=== PATIENT | female | born 1955 | race Two or more races ===

== ENCOUNTER 2024-08-10 08:39 | Outpatient (AMB) | payer OTHER, MEDICAID, SELFPAY ==
[2024-08-10 09:05] VITALS: BP 143/85; PULSE 72; RESP 18; TEMP 36; O2SAT 95; BMI 33.2
--- NOTE | 2024-08-10 09:05 | ORTHONT_ITS ---
Vital signs 08/10/24 09:05 Height 1.52 m Height Method Stated Weight 76.771 kg Weight Measurement Method Standing Scale BMI 33.2 BP 143/85 H Blood Pressure Source Automatic Cuff Blood Pressure Location Right Upper Arm Position Sitting Respiration 18 Pulse 72 Pulse Source Monitor Temp 96.8 F Temp Source Temporal Artery Scan Pulse Oximetry (%) 95 Oxygen Delivery Method Room Air Med/Allergies Allergies & Medications Allergies No Known Allergies Allergy (Verified 07/23/24 11:09) Subjective Visit Visit for: follow up visit, hip, knee and other (specify) (LAB RESULTS) Immunization / Flu Flu Vaccine in the Last 12 Months: Yes Flu Vaccine Exclusion Criteria: Already Received History of Present Illness Chief complaint: LAB RESULTS/KNEE FOLLOW UP Date of injury / onset of symptoms: YEARS Date of 1st surgery (if applicable): 13-15 YEARS LEFT KNEE SX Normal is a pleasant 68-year-old female with bilateral knee pain and bilateral k nee arthritis. She has significant knee more knee pain on the left than the right. She had a left total knee replacement 10 years ago. The pain is affecting her quality life and happiness. Her right knee pain and left hip trochanteric bursitis has improved with the injection. Personal History Occupation: RETIRED Hobbies: WALKING Red flag PMH: Blood thinners Pain Pain level (0-10): 6 Pain duration: ON AND OFF Pain location: inside (medial) Pain quality: sharp and aching Pain timing: increases with activity Associated signs & symptoms: none Ambulatory data Ambulatory device: none Treatments Improvement with previous injections: No Improvement with PT: No Improvement with NSAIDS: no Review of Systems Review of Systems: All systems negative unless otherwise noted in HPI. Exam Exam Patient is in no acute distress and is cooperative with the examination today. Patient has a normal mood and affect. Breathing is nonlabored. In no respiratory distress. Bilateral extremities were evaluated and demonstrates sensation intact to light touch. Palpable pedal pulses are present. No significant edema is present. Left knee incisions clean dry intact. Range of motion is 10 to 90 degrees. She has medial and lateral laxity. There is >5 mm of medial and lateral laxity. Right knee is tender to palpation medially. Range of motion 0 to 110 degrees X-rays demonstrate moderate arthritis of the right Knee with moderate joint space narrowing medially. The patient also has a left total knee replacement in good alignment position. This looks like a Bushra knee. It is cemented. Assessment and Plan Problem List (1) Painful total knee replacement, left: Status: Acute Plan: Patient is a pleasant 61 of-year-old female with painful bilateral knees. She has a left total knee replacement 15 years ago And there is standard 10 degrees of extensor lag on the left. She also has symptoms of instability on the left. I discussed with her that we have 2 options. We could redo the whole knee we could try upsizing the liner. She would like to try upsizing the liner and the less invasive surgery. She does live alone. We discussed a revision for instability including upsizing the liner. We will try to Achieved stability with just upsizing the liner but we discussed that we may have to pull both components and do a Complete revision she does not achieve stability. We discussed the risk of surgery including infection, persistent instability, persistent pain. We did get an ESR and CRP and it was normal. She would like to proceed with surgery (2) Arthritis of knee, right: Status: Acute Advanced Care Planning Discussion Advance care planning discussed with:: patient Office Procedures GNS Level of Care Nursing/Assessment Patient Status: Established Patient Nursing Assessment/Reassesment: Medication Reconciliation, Update PMH in EMR and Vital Signs Coordination of Care: Complex Care and Chronic Disease 1-5, Education Complex Pt/Fam, Consent,records obtained, informed consent, 1 Ins Authorization, Results/Orders obtained and Staff clarify orders Special Needs: Language special needs Established Patient Charge Established Patient Point Assignment: 110 Established Patient Point Charge: EP Level 3 (80-115) Past Medical History Past Medical History Have you ever been diagnosed with any of the following: Neurological Problems Seizures: No Cardiology Problems Hypercholesterolemia: Yes (TAKES MED) Congestive Heart Failure: No Hypertension: Yes (TAKES MED) Hypotension: Yes Varicose Veins: Yes (RAQUEL LEFT LEG FOR THIS PROC) Respiratory Problems Chronic Obstructive Pulmonary Disease (COPD): No Pneumonia: Yes Sleep Apnea: No Smoking: No Smoking Cessation Counseling: No Smoking Exposure: No Tobacco Use: No Stomache/Intestinal Problems Cirrhosis: Yes (OF LIVER) Gall Bladder Disease: Yes (LAP) Gastroesophageal Reflux Disease: Yes Genital/Urinary Problems Renal Disease: No Kidney Stones: No Reproductive Problems Breast Cancer: Yes (RIGHT) Previous Pregnancies: Yes (X8) Musculoskeletal Problems Arthritis: Yes Endocrine Problems Diabetes Mellitus Type 1: No Diabetes Mellitus Type 2: Yes Psychologic Problems Depression: Yes Anxiety: Yes Other Problems Hospitalization: No Shingles: No Falls: No Blood Transfusions: No Blood Transfusion Reaction: No Anesthesia Reactions: Yes (nausea/vomiting when awaking from anesthesia) Chemotherapy: No Radiation Therapy: No MRSA: No Chicken Pox: Yes Measles: Yes Mumps: Yes Cancer: Yes Surgical History Total Knee Replacement: Yes Hysterectomy: Yes Thyroidectomy: Yes
== END 2024-08-10 09:22 | disposition home or self-care (01) ==
LOC: HODSRG 08:39
PROVIDERS: PCP Nurse Practitioner Family; Referring Provider Nurse Practitioner Family; Supervising Provider Orthopaedic Surgery Adult Reconstructive Orthopaedic Surgery; Visit Provider Orthopaedic Surgery Adult Reconstructive Orthopaedic Surgery
DX: M25.562 Pain in left knee (principal); M25.561 Pain in right knee; M17.11 Unilateral primary osteoarthritis, right knee; E78.00 Pure hypercholesterolemia, unspecified; I10 Essential (primary) hypertension; Z96.652 Presence of left artificial knee joint
CPT/HCPCS: 99213; G0463

== ENCOUNTER 2024-08-18 12:41 | Outpatient (RCR) | payer OTHER, MEDICAID, SELFPAY ==
--- NOTE | 2024-08-18 13:35 | PTNOTE_ITS ---
PT OP Initial Eval Patient Information Outpatient Physical Therapy Treatment Date: 08/18/24 Visit Reasons: TKA Medical Diagnosis: [id number] Treatment Dx #1: L knee pain Treatment Dx #2: Dec L knee ROM Start of Care: 08/18/24 Date of Onset: 6 months ago Smoking Status Smoking Status: Never smoker Initial Assessment Subjective: Pt is 68 yr old tuvaluan speaking female who reports L knee pain that can be intense and weakness that can cause the knee to give out. Pt says she has fallen because of this. This knee has been replaced many years ago PMH: Osteoporosis, DM Imaging: Xray L knee Moderate narrowing medial joint space right knee, Moderate osteoarthritis patellofemoral joint right knee Pt goal: less pain and improved L knee strength Objective: L knee AROM: Extension: full in supine. Flexion: 74 deg in supine SLR: 20 deg in supine TTP: moderate of patella borders Strength: Quads: 3-/5 Difficulty in sitting to extend knee HS: 3+/5 Patella compression: positive Assessment: Pt presents with marked L knee extensor weakness and pain with difficulty doing straight leg raise consistent with patellofemoral OA. Pt requires skilled therapy to meet goals and has fair rehab potential. Short Term and Snf Goals 1. Independent with HEP 2. Improved knee ROM to full extension to 105 deg flexion 3. Improved quad and hamstring strength to 4-/5 4. Improved ambulatory tolerance to community distances with symmetrical gait pattern without knee buckling Treatment Plan ? 1. Manual therapy ? 2. Therex ? 3. Modalities as indicated, moist heat, ice, estim Frequency and Duration: 1-2x a week for 12 visits Certification Dates: 08/18/24 to 11/16/24 Procedure Charges OP PT Eval Mod Complex 30 minutes: Yes
== END 2024-08-28 23:59 | disposition home or self-care (01) ==
LOC: CPTX 12:41
PROVIDERS: PCP Orthopaedic Surgery Adult Reconstructive Orthopaedic Surgery; Referring Provider Orthopaedic Surgery Adult Reconstructive Orthopaedic Surgery; Visit Provider Orthopaedic Surgery Adult Reconstructive Orthopaedic Surgery
DX: M25.562 Pain in left knee (principal); R53.1 Weakness; Z96.652 Presence of left artificial knee joint
CPT/HCPCS: 97162

== ENCOUNTER 2024-09-14 09:30 | Outpatient (RCR) | payer OTHER, MEDICAID, SELFPAY ==
--- NOTE | 2024-08-30 10:35 | PT.ODAYNRPT ---
PT Outpatient Daily Note OP Daily Note Outpatient Physical Therapy Treatment Date: 08/30/24 Visit Reasons: left knee pain Subjective: Same as time of eval Objective: See f/S for therex SABRINA x7' Assessment: L quad weakness likely related to patellofemoral OA and compression sensitivity Plan: Continue per POC Length of Time (minutes) of Treatment: 30 Minutes Procedure Charges Therapeutic Exercise 30 minutes: Yes
--- NOTE | 2024-09-02 09:29 | PT.ODAYNRPT ---
PT Outpatient Daily Note OP Daily Note Outpatient Physical Therapy Treatment Date: 09/02/24 Visit Reasons: left knee pain Subjective: The L knee feels a little stronger Objective: See f/S for evelio BENNETT x7' Assessment: L quad weakness likely related to patellofemoral OA and compression sensitivity. She was able to do a complete revolution on the bike in reverse today Plan: Continue per POC Length of Time (minutes) of Treatment: 30 Minutes Procedure Charges Therapeutic Exercise 30 minutes: Yes
--- NOTE | 2024-09-07 10:15 | PT.ODAYNRPT ---
PT Outpatient Daily Note OP Daily Note Outpatient Physical Therapy Treatment Date: 09/07/24 Visit Reasons: left knee pain Subjective: Pt c/o L knee pain and stiffness. Objective: Please see flow sheet for ther ex list. Assessment: Pt c/o knee pain with interventions but determined to try and complete exercises. Plan: Continue with POc. Length of Time (minutes) of Treatment: 30 Minutes Procedure Charges Therapeutic Exercise 30 minutes: Yes
--- NOTE | 2024-09-09 09:53 | PT.ODAYNRPT ---
PT Outpatient Daily Note OP Daily Note Outpatient Physical Therapy Treatment Date: 09/09/24 Visit Reasons: left knee pain Subjective: Pt reports L knee is feeling better but still stiff. Objective: Please see flow sheet for ther ex list. Assessment: Progression of interventions tolerated well. Plan: Continue with POC. Length of Time (minutes) of Treatment: 30 Minutes Procedure Charges Therapeutic Exercise 30 minutes: Yes
--- NOTE | 2024-09-14 09:47 | PT.ODAYNRPT ---
PT Outpatient Daily Note OP Daily Note Outpatient Physical Therapy Treatment Date: 09/14/24 Visit Reasons: left knee pain Subjective: Pt reports knee is stiff but pain has decreased. Objective: Please see flow sheet for ther ex list. Assessment: Pt demonstrates improved activity tolerance indicated by less seated rest breaks during exercise. Plan: Continue with POC. Length of Time (minutes) of Treatment: 30 Minutes Procedure Charges Therapeutic Exercise 30 minutes: Yes
== END 2024-09-28 23:59 | disposition home or self-care (01) ==
LOC: CPTX 09:30
PROVIDERS: PCP Orthopaedic Surgery Adult Reconstructive Orthopaedic Surgery; Referring Provider Orthopaedic Surgery Adult Reconstructive Orthopaedic Surgery; Visit Provider Orthopaedic Surgery Adult Reconstructive Orthopaedic Surgery
DX: M25.562 Pain in left knee (principal); R53.1 Weakness; Z96.652 Presence of left artificial knee joint
CPT/HCPCS: 97110

== ENCOUNTER → 2024-12-09 | Outpatient (CLI) | payer OTHER, MEDICAID, SELFPAY ==
--- NOTE | 2024-12-09 12:38 | XR_ITS ---
Examination: Chest PA and lateral 2 views Technique: Upright PA lateral chest 2 views Exam date and time: 2024, 1301 hrs. Indications: Diagnosis pulmonary embolism Findings: Normal heart size. No pneumonia or pulmonary infarction. Moderate osteopenia. Impression: No pneumonia or pulmonary infarction
== END | disposition home or self-care (01) ==
PROVIDERS: PCP Nurse Practitioner Family; Referring Provider Nurse Practitioner Family; Visit Provider Nurse Practitioner Family
DX: I26.99 Other pulmonary embolism without acute cor pulmonale (principal)
CPT/HCPCS: 71046

== ENCOUNTER → 2025-01-06 | Outpatient (CLI) | payer MEDICARE, MEDICAID, SELFPAY ==
--- NOTE | 2025-01-06 11:30 | XR_ITS ---
Examination: Retroperitoneal ultrasound, complete Technique: Multiple high resolution grayscale images of the retroperitoneum obtained, including kidneys and bladder. Exam date and time:January 06, 2025 1131 hrs. Indications: Proteinuria left are examination 2 weeks ago Findings: Right kidney 10.9 cm cortex 1.4 cm Left kidney 11.3 cm cortex 1.8 cm Mild bilateral renal parenchymal scar formation Mild left hydronephrosis No bladder mass or bladder calculi Bladder prevoid volume 160 cc postvoid volume 0 cc Impression: Bilateral renal cortical thinning Mild bilateral renal parenchymal scar formation Mild left hydronephrosis, consider CT stone study follow-up to exclude left ureteral calculus
== END | disposition home or self-care (01) ==
PROVIDERS: PCP Nurse Practitioner Family; Referring Provider Nurse Practitioner Family; Visit Provider Nurse Practitioner Family
DX: N28.89 Other specified disorders of kidney and ureter (principal)
CPT/HCPCS: 76770

== ENCOUNTER 2025-01-10 12:25 | Outpatient (RCR) | payer MEDICARE, MEDICAID, SELFPAY ==
--- NOTE | 2025-01-10 18:17 | PT.ODS1RPT ---
PT OP Progress/Discharge Note Date of Service: 01/10/25 Progress Note/DC Note Progress Note/Discharge Note: DC Note Patient Information Visit Reasons: Left TKA Service Continue Service or Discharge: Discharge Discharge Date: 01/10/25 Status Objective: No Rx, no charges Assessment: Pt arrived for therapy and presented new insurance cards so she will need to D/C and be referred back to therapy if provider wants her to continue. She wasn't making progress with goals at the time of last therapy session and today unable to extend the knee in sitting. Flexion is still limited and she is unable to make full revolution on the bike. Plan: D/C
== END 2025-01-26 23:59 | disposition home or self-care (01) ==
LOC: CPTX 12:25
PROVIDERS: PCP Orthopaedic Surgery Adult Reconstructive Orthopaedic Surgery; Referring Provider Orthopaedic Surgery Adult Reconstructive Orthopaedic Surgery; Visit Provider Orthopaedic Surgery Adult Reconstructive Orthopaedic Surgery
DX: Z53.8 Procedure and treatment not carried out for other reasons (principal)

== ENCOUNTER 2025-01-11 11:12 | Outpatient (AMB) | payer MEDICARE, MEDICAID, SELFPAY ==
--- NOTE | 2025-01-11 11:16 | ORTHONT_ITS ---
Vital signs 01/11/25 11:28 Height 1.52 m Height Method Stated Weight 78.557 kg Weight Measurement Method Standing Scale BMI 34.0 BP 126/78 Blood Pressure Source Automatic Cuff Blood Pressure Location Left Upper Arm Position Sitting Respiration 17 Pulse 64 Pulse Source Monitor Temp 97.3 F Temp Source Temporal Artery Scan Pulse Oximetry (%) 98 Oxygen Delivery Method Room Air Med/Allergies Allergies & Medications Allergies No Known Allergies Allergy (Verified 01/11/25 11:29) Medication Reconciliation apixaban 2.5 mg tablet (Eliquis) 2.5 mg PO BID 07/08/24 [History Confirmed 01/11/25] atorvastatin 40 mg tablet 40 mg PO QDAY 07/08/24 [History Confirmed 01/11/25] metformin 500 mg tablet 500 mg PO BID 07/08/24 [History Confirmed 01/11/25] albuterol sulfate 90 mcg/actuation aerosol inhaler 2 puff inhalation QID 07/23/24 [History Confirmed 01/11/25] alendronate 70 mg tablet 70 mg PO QWEEK 07/23/24 [History Confirmed 01/11/25] famotidine 20 mg tablet 20 mg PO QDAY 07/23/24 [History Confirmed 01/11/25] hydrocodone 7.5 mg-acetaminophen 325 mg tablet 1 tab PO Q6H PRN 07/23/24 [History Confirmed 01/11/25] pravastatin 40 mg tablet 40 mg PO QDAY 07/23/24 [History Confirmed 01/11/25] empagliflozin 10 mg tablet (Jardiance) 10 mg PO QDAY 01/11/25 [History Confirmed 01/11/25] Exam Exam Patient is in no acute distress and is cooperative with the examination today. Patient has a normal mood and affect. Breathing is nonlabored. In no respiratory distress. Bilateral extremities were evaluated and demonstrates sensation intact to light touch. Palpable pedal pulses are present. No significant edema is present. Left knee incisions clean dry intact. Range of motion is 10 to 90 degrees. She has medial and lateral laxity. There is >5 mm of medial and lateral laxity. Right knee is tender to palpation medially. Range of motion 0 to 110 degrees X-rays demonstrate moderate arthritis of the right Knee with moderate joint space narrowing medially. The patient also has a left total knee replacement in good alignment position. This looks like a Bushra knee. It is cemented. Assessment and Plan Problem List (1) Painful total knee replacement, left: Status: Acute Plan: Patient is a pleasant 61 of-year-old female with painful bilateral knees. She has a left total knee replacement 15 years ago and She also has symptoms of instability on the left. I discussed with her that we have 2 options. We could redo the whole knee we could try upsizing the liner. She would like to try upsizing the liner and the less invasive surgery. She does live alone. We discussed a revision for instability including upsizing the liner. We will try to Achieved stability with just upsizing the liner but we discussed that we may have to pull both components and do a Complete revision she does not achieve stability. We discussed the risk of surgery including infection, persistent instability, persistent pain. We did get an ESR and CRP and it was normal. She would like to hold off on revision of her left knee for now She has done well with physical therapy would like new physical therapy for instability as the knee pain is improved on the left. We discussed injections of the left hip trochanteric bursa and right knee as well Recommend hip bursa cortisone injection as patient would like to proceed with conservative treatment at this time. The risks and benefits of the procedure were reviewed with the patient and patient gave verbal consent to continue with the procedure. Procedure: performed by Dr. Thibodeaux Using sterile technique the left hip bursa was thoroughly prepped with alcohol prep, and approximately 1 cc of Kenalog 40 mg/mL and 4 cc of 1% Lidocaine was injected without resistance. The patient tolerated the procedure well. Recommend knee cortisone injection as patient would like to proceed with conservative treatment at this time. The risks and benefits of the procedure were reviewed with the patient and patient gave verbal consent to continue with the procedure. Procedure: performed by Dr. Thibodeaux Using sterile technique the Right knee was thoroughly prepped with alcohol, and approximately 1 cc of Kenalog 40 mg/mL and 4 cc of 1% lidocaine was injected without resistance into the medial tibial femoral joint space. The patient tolerated the procedure. (2) Arthritis of knee, right: Status: Acute Advanced Care Planning Discussion Advance care planning discussed with:: patient Office Procedures GNS Level of Care Nursing/Assessment Patient Status: Established Patient Nursing Assessment/Reassesment: Medication Reconciliation, Update PMH in EMR and Vital Signs Coordination of Care: Complex Care and Chronic Disease 1-5, Consent,records obtained, informed consent, Education Simp Pt/Fam, 1 Ins Authorization, Results/Orders obtained and Staff clarify orders Special Needs: Language special needs (STATELESS ) Established Patient Charge Established Patient Point Assignment: 105 Established Patient Point Charge: EP Level 3 (80-115) Surgical Proc/IM SQ injection Major Surgical Procedure: Yes (RIGHT KNEE & LEFT HIP ) Medication Given Medication Given Medication Given: Yes Documented Dose Given: 8 Route: Infiitration Medication Given Medication Given Medication Given: Yes Documented Dose Given: 2 Route: Infiitration Office Meds Xylocaine 10 mg/mL (1 %) injection solution Performing Provider: Cam Thibodeaux MD Performing Location: [facility] Administered by: Cam Thibodeaux MD on 01/11/25 11:33 Dose Route Admin Location Dispensed Lot Number Expiration Date [facility] [employer] 40 mL Infiltration 40 mL [id number] FRESEN [employer]US KABI triamcinolone acetonide 40 mg/mL suspension for injection Performing Provider: Cam Thibodeaux MD Performing Location: [facility] Administered by: Cam Thibodeaux MD on 01/11/25 11:33 Dose Route Admin Location Dispensed Lot Number Expiration Date [facility] [employer] 80 mg intra-articular 2 mL [id number] TEV A PARENTERAL MA Intake Visit Data Collection New Patient or Established: Established Patient (seen at [facility] within 3 years) Reason for Visit:: LEFT HIP PAIN Seen by Clinical Staff ONLY (RN/MA): No Overnight Stocker Required: Yes PCP or OBGYN visit in last 3 months: Yes Hx Now: No Do You Feel Safe at Home: Yes Authorities Contacted: N/A Questionairres Past Medical History Past Medical History Have you ever been diagnosed with any of the following: Neurological Problems Seizures: No Cardiology Problems Hypercholesterolemia: Yes (TAKES MED) Congestive Heart Failure: No Hypertension: Yes (TAKES MED) Hypotension: Yes Varicose Veins: Yes (RAQUEL LEFT LEG FOR THIS PROC) Respiratory Problems Chronic Obstructive Pulmonary Disease (COPD): No Pneumonia: Yes Sleep Apnea: No Smoking: No Smoking Cessation Counseling: No Smoking Exposure: No Tobacco Use: No Stomache/Intestinal Problems Cirrhosis: Yes (OF LIVER) Gall Bladder Disease: Yes (LAP) Gastroesophageal Reflux Disease: Yes Genital/Urinary Problems Renal Disease: No Kidney Stones: No Reproductive Problems Breast Cancer: Yes (RIGHT) Previous Pregnancies: Yes (X8) Musculoskeletal Problems Arthritis: Yes Endocrine Problems Diabetes Mellitus Type 1: No Diabetes Mellitus Type 2: Yes Psychologic Problems Depression: Yes Anxiety: Yes Other Problems Hospitalization: No Shingles: No Falls: No Blood Transfusions: No Blood Transfusion Reaction: No Anesthesia Reactions: Yes (nausea/vomiting when awaking from anesthesia) Chemotherapy: No Radiation Therapy: No MRSA: No Chicken Pox: Yes Measles: Yes Mumps: Yes Cancer: Yes Surgical History Total Knee Replacement: Yes Hysterectomy: Yes Thyroidectomy: Yes Subjective Visit Visit for: follow up visit, hip (LEFT HIP) and knee (RIGHT KNEE ) Immunization / Flu Flu Vaccine in the Last 12 Months: Yes Flu Vaccine Exclusion Criteria: Already Received History of Present Illness Chief complaint: Left hip trochanteric bursitis and right knee pain Patient is a 69-year-old female with left hip trochanteric bursitis as well as right knee arthritis. She also has instability of the left knee and we discussed revision previously. She did very well with an injection of her left hip trochanteric bursa as well as her left knee arthritis. She would like repeat injections today Personal History Red flag PMH: none Pain Pain level (0-10): 6 Pain duration: 4 DAYS Pain location: groin and anterior Pain quality: sharp and aching Pain timing: night and increases with activity Associated signs & symptoms: stiffness Ambulatory data Ambulatory device: none Walking distance (minutes): 5 Treatments Number of previous injections: 2 Improvement with previous injections: Yes Number of Physical Therapy sessions: 0 Improvement with NSAIDS: n/a Review of Systems Review of Systems: All systems negative unless otherwise noted in HPI.
[2025-01-11 11:28] VITALS: BP 126/78; PULSE 64; RESP 17; TEMP 36.3; O2SAT 98; BMI 34.0
== END 2025-01-11 11:38 | disposition home or self-care (01) ==
LOC: HODSRG 11:12
PROVIDERS: PCP Nurse Practitioner Family; Referring Provider Nurse Practitioner Family; Supervising Provider Orthopaedic Surgery Adult Reconstructive Orthopaedic Surgery; Visit Provider Orthopaedic Surgery Adult Reconstructive Orthopaedic Surgery
DX: T84.84XD Pain due to internal orthopedic prosthetic devices, implants and grafts, subsequent encounter (principal); Y84.9 Medical procedure, unspecified as the cause of abnormal reaction of the patient, or of later complication, without mention of misadventure at the time of the procedure; M70.62 Trochanteric bursitis, left hip; M17.0 Bilateral primary osteoarthritis of knee; I10 Essential (primary) hypertension; E11.9 Type 2 diabetes mellitus without complications; E78.00 Pure hypercholesterolemia, unspecified; K21.9 Gastro-esophageal reflux disease without esophagitis
CPT/HCPCS: 20610; 99212; 99213; J3301; J3490; G0463

== ENCOUNTER 2025-02-24 09:06 | Outpatient (AMB) | payer MEDICARE, MEDICAID, SELFPAY ==
[2025-02-24 09:22] VITALS: BP 115/68; PULSE 80; RESP 16; TEMP 36.7; O2SAT 96; BMI 32.8
--- NOTE | 2025-02-24 09:22 | PD.ORTHCLVIS ---
Vital signs 02/24/25 09:22 Height 1.52 m Height Method Stated Weight 76.005 kg Weight Measurement Method Standing Scale BMI 32.8 BP 115/68 Blood Pressure Source Automatic Cuff Blood Pressure Location Right Upper Arm Position Sitting Respiration 16 Pulse 80 Pulse Source Monitor Temp 98.1 F Temp Source Temporal Artery Scan Pulse Oximetry (%) 96 Oxygen Delivery Method Room Air BiPAP Med/Allergies Allergies & Medications Allergies No Known Allergies Allergy (Verified 02/24/25 09:23) Medication Reconciliation apixaban 2.5 mg tablet (Eliquis) 2.5 mg PO BID 07/08/24 [History Confirmed 02/24/25] atorvastatin 40 mg tablet 40 mg PO QDAY 07/08/24 [History Confirmed 02/24/25] metformin 500 mg tablet 500 mg PO BID 07/08/24 [History Confirmed 02/24/25] albuterol sulfate 90 mcg/actuation aerosol inhaler 2 puff inhalation QID 07/23/24 [History Confirmed 02/24/25] alendronate 70 mg tablet 70 mg PO QWEEK 07/23/24 [History Confirmed 02/24/25] famotidine 20 mg tablet 20 mg PO QDAY 07/23/24 [History Confirmed 02/24/25] hydrocodone 7.5 mg-acetaminophen 325 mg tablet 1 tab PO Q6H PRN 07/23/24 [History Confirmed 02/24/25] pravastatin 40 mg tablet 40 mg PO QDAY 07/23/24 [History Confirmed 02/24/25] empagliflozin 10 mg tablet (Jardiance) 10 mg PO QDAY 01/11/25 [History Confirmed 02/24/25] Exam Exam Patient is in no acute distress and is cooperative with the examination today. Patient has a normal mood and affect. Breathing is nonlabored. In no respiratory distress. Bilateral extremities were evaluated and demonstrates sensation intact to light touch. Palpable pedal pulses are present. No significant edema is present. Left knee incisions clean dry intact. Range of motion is 10 to 90 degrees. She has medial and lateral laxity. There is >5 mm of medial and lateral laxity. Right knee is tender to palpation medially. Range of motion 0 to 110 degrees X-rays demonstrate moderate arthritis of the right Knee with moderate joint space narrowing medially. The patient also has a left total knee replacement in good alignment position. This looks like a Bushra knee. It is cemented. Assessment and Plan Problem List (1) Painful total knee replacement, left: Status: Acute Plan: Patient is a pleasant 61 of-year-old female with painful bilateral knees. She has a left total knee replacement 15 years ago and She also has symptoms of instability on the left. I discussed with her that we have 2 options. We could redo the whole knee we could try upsizing the liner. She would like to try upsizing the liner and the less invasive surgery. She does live alone. We discussed a revision for instability including upsizing the liner. We will try to Achieved stability with just upsizing the liner but we discussed that we may have to pull both components and do a Complete revision she does not achieve stability. We discussed the risk of surgery including infection, persistent instability, persistent pain. We did get an ESR and CRP and it was normal. She would like to hold off on revision of her left knee for now As she reports she is doing well with physical therapy (2) Arthritis of knee, right: Status: Acute Advanced Care Planning Discussion Advance care planning discussed with:: patient Office Procedures GNS Level of Care Nursing/Assessment Patient Status: Established Patient Nursing Assessment/Reassesment: Medication Reconciliation, Update PMH in EMR and Vital Signs Coordination of Care: Complex Care and Chronic Disease 1-5, Education Complex Pt/Fam, Consent,records obtained, informed consent, Results/Orders obtained and Staff clarify orders Special Needs: Language special needs (LITHUANIAN ) Established Patient Charge Established Patient Point Assignment: 95 Established Patient Point Charge: EP Level 3 (80-115) MA Intake Visit Data Collection New Patient or Established: Established Patient (seen at [facility] within 3 years) Reason for Visit:: FU LT KNEE PAIN Seen by Clinical Staff ONLY (RN/MA): No Independent Trader Required: Yes PCP or OBGYN visit in last 3 months: Yes Hx Now: No Do You Feel Safe at Home: Yes Authorities Contacted: N/A Questionairres Past Medical History Past Medical History Have you ever been diagnosed with any of the following: Neurological Problems Seizures: No Cardiology Problems Hypercholesterolemia: Yes (TAKES MED) Congestive Heart Failure: No Hypertension: Yes (TAKES MED) Hypotension: Yes Varicose Veins: Yes (RAQUEL LEFT LEG FOR THIS PROC) Respiratory Problems Chronic Obstructive Pulmonary Disease (COPD): No Pneumonia: Yes Sleep Apnea: No Smoking: No Smoking Cessation Counseling: No Smoking Exposure: No Tobacco Use: No Stomache/Intestinal Problems Cirrhosis: Yes (OF LIVER) Gall Bladder Disease: Yes (LAP) Gastroesophageal Reflux Disease: Yes Genital/Urinary Problems Renal Disease: No Kidney Stones: No Reproductive Problems Breast Cancer: Yes (RIGHT) Previous Pregnancies: Yes (X8) Musculoskeletal Problems Arthritis: Yes Endocrine Problems Diabetes Mellitus Type 1: No Diabetes Mellitus Type 2: Yes Psychologic Problems Depression: Yes Anxiety: Yes Other Problems Hospitalization: No Shingles: No Falls: No Blood Transfusions: No Blood Transfusion Reaction: No Anesthesia Reactions: Yes (nausea/vomiting when awaking from anesthesia) Chemotherapy: No Radiation Therapy: No MRSA: No Chicken Pox: Yes Measles: Yes Mumps: Yes Cancer: Yes Surgical History Total Knee Replacement: Yes Hysterectomy: Yes Thyroidectomy: Yes Subjective Visit Visit for: follow up visit and knee (LEFT KNEE ) Immunization / Flu Flu Vaccine in the Last 12 Months: Yes Flu Vaccine Exclusion Criteria: Already Received History of Present Illness Chief complaint: Left hip trochanteric bursitis and right knee pain Patient is a 69-year-old female with left hip trochanteric bursitis as well as right knee arthritis. She also has instability of the left knee and we discussed revision previously. She reports that she has been doing well with physical therapy and does not want a revision at this time but it is still continuing to bother her Personal History Red flag PMH: none Pain Pain level (0-10): 3 Pain duration: 3 WEEKS Pain location: anterior Pain quality: dull and burning Pain timing: night and increases with activity Associated signs & symptoms: weakness (LEFT KNEE ) Ambulatory data Ambulatory device: none Walking distance (minutes): 1 Treatments Number of previous injections: 2 Improvement with previous injections: Yes Number of Physical Therapy sessions: 6 Improvement with PT: Yes Improvement with NSAIDS: n/a Review of Systems Review of Systems: All systems negative unless otherwise noted in HPI.
== END 2025-02-24 09:43 | disposition home or self-care (01) ==
LOC: HODSRG 09:06
PROVIDERS: PCP Nurse Practitioner Family; Referring Provider Nurse Practitioner Family; Supervising Provider Orthopaedic Surgery Adult Reconstructive Orthopaedic Surgery; Visit Provider Orthopaedic Surgery Adult Reconstructive Orthopaedic Surgery
DX: T84.84XD Pain due to internal orthopedic prosthetic devices, implants and grafts, subsequent encounter (principal); Y84.9 Medical procedure, unspecified as the cause of abnormal reaction of the patient, or of later complication, without mention of misadventure at the time of the procedure; M17.11 Unilateral primary osteoarthritis, right knee; I10 Essential (primary) hypertension; E78.00 Pure hypercholesterolemia, unspecified; K21.9 Gastro-esophageal reflux disease without esophagitis; E11.9 Type 2 diabetes mellitus without complications; M70.62 Trochanteric bursitis, left hip
CPT/HCPCS: 99213; G0463

== ENCOUNTER → 2025-03-03 | Outpatient (CLI) | payer MEDICARE, MEDICAID, SELFPAY ==
--- NOTE | 2025-03-03 10:30 | XR_ITS ---
Examination: CT abdomen with intravenous contrast CT pelvis with intravenous contrast 2-D coronal reconstructions 2-D sagittal reconstructions Date and time of exam:March 03, 2025 1120 hours Comparison August 19, 2023 INDICATIONS: Urinary incontinence right upper abdominal pain one year. CTDI: vol (mGy) 9.71 DLP: (mGycm) 513 Technique: Multiple axial sections of the abdomen and pelvis have been obtained. 64 slice high-resolution scanner used. 3 mm axial sections have been obtained, without intravenous contrast 2-D sagittal, coronal reconstructions obtained. Low dose protocols were performed. One or more of the following dose reduction techniques were used; automated exposure control, adjustment of the mA and/or KV according to patient size, use of iterative reconstruction technique. Findings: No focal liver or splenic lesion Contracted gallbladder No pancreatic or adrenal mass No renal or ureteral calculi, no hydronephrosis Aorta normal size Normal appendix No bowel obstruction Colonic diverticulosis, no diverticulitis Urinary bladder intact IMPRESSION: No acute process in the abdomen or pelvis
== END | disposition home or self-care (01) ==
LOC: CCTX 09:42
PROVIDERS: Referring Provider Nurse Practitioner Family; Visit Provider Nurse Practitioner Family
DX: R39.81 Functional urinary incontinence (principal)
CPT/HCPCS: 74177; A4649; Q9963

== ENCOUNTER → 2025-03-09 | Outpatient (CLI) | payer MEDICARE, MEDICAID, SELFPAY ==
--- NOTE | 2025-03-09 | XR_ITS ---
Examination: Screening digital mammography, bilateral Computer aided detection 3-D breast Tomosynthesis, bilateral Date and time of exam: March 09, 2025 0907 hours Compared to mammograms dating to April 07, 2019 Indication: Screening Technique: Nonmagnified MLO, CC views of the breasts to been obtained, reconstructed from 3-D Tomosynthesis images. R2 computer aided detection program utilized for evaluation of suspicious masses and/or abnormal calcifications. 3-D Tomosynthesis images obtained. Findings: Scattered areas of fibroglandular density Findings right breast reconstruction again depicted No interval suspicious masses Surgical clips upper right breast Impression: BI-RADS category II: Benign Findings. Recommend 1 year follow-up mammogram.
== END | disposition home or self-care (01) ==
PROVIDERS: Referring Provider Nurse Practitioner Family; Visit Provider Nurse Practitioner Family
DX: Z12.31 Encounter for screening mammogram for malignant neoplasm of breast (principal); R92.323 Mammographic fibroglandular density, bilateral breasts
CPT/HCPCS: 77063; 77067

== ENCOUNTER 2025-04-12 10:42 | Outpatient (AMB) | payer MEDICARE, MEDICAID, SELFPAY ==
--- NOTE | 2025-04-12 11:11 | ORTHONT_ITS ---
Vital signs 04/12/25 11:13 Height 1.52 m Height Method Stated Weight 74.077 kg Weight Measurement Method Standing Scale BMI 32.1 BP 118/76 Blood Pressure Source Automatic Cuff Blood Pressure Location Left Upper Arm Position Sitting Respiration 16 Pulse 70 Pulse Source Monitor Temp 97.8 F Temp Source Temporal Artery Scan Pulse Oximetry (%) 95 Oxygen Delivery Method Room Air Med/Allergies Allergies & Medications Allergies No Known Allergies Allergy (Verified 04/12/25 11:12) Medication Reconciliation apixaban 2.5 mg tablet (Eliquis) 2.5 mg PO BID 07/08/24 [History Confirmed 04/12/25] atorvastatin 40 mg tablet 40 mg PO QDAY 07/08/24 [History Confirmed 04/12/25] metformin 500 mg tablet 500 mg PO BID 07/08/24 [History Confirmed 04/12/25] albuterol sulfate 90 mcg/actuation aerosol inhaler 2 puff inhalation QID 07/23/24 [History Confirmed 04/12/25] alendronate 70 mg tablet 70 mg PO QWEEK 07/23/24 [History Confirmed 04/12/25] famotidine 20 mg tablet 20 mg PO QDAY 07/23/24 [History Confirmed 04/12/25] hydrocodone 7.5 mg-acetaminophen 325 mg tablet 1 tab PO Q6H PRN 07/23/24 [History Confirmed 04/12/25] pravastatin 40 mg tablet 40 mg PO QDAY 07/23/24 [History Confirmed 04/12/25] empagliflozin 10 mg tablet (Jardiance) 10 mg PO QDAY 01/11/25 [History Confirmed 04/12/25] Exam Exam Patient is in no acute distress and is cooperative with the examination today. Patient has a normal mood and affect. Breathing is nonlabored. In no respiratory distress. Bilateral extremities were evaluated and demonstrates sensation intact to light touch. Palpable pedal pulses are present. No significant edema is present. Left knee incisions clean dry intact. Range of motion is 10 to 90 degrees. She has medial and lateral laxity. There is >5 mm of medial and lateral laxity. Right knee is tender to palpation medially. Range of motion 0 to 110 degrees X-rays demonstrate moderate arthritis of the right Knee with moderate joint space narrowing medially. The patient also has a left total knee replacement in good alignment position. This looks like a Bushra knee. It is cemented. Assessment and Plan Problem List (1) Painful total knee replacement, left: Status: Acute Plan: Patient is a pleasant 61 of-year-old female with painful bilateral knees. She has a left total knee replacement 15 years ago and She also has symptoms of instability on the left. I discussed with her that we have 2 options. We could redo the whole knee we could try upsizing the liner. She would like to try upsizing the liner and the less invasive surgery. She does live alone. We discussed a revision for instability including upsizing the liner. We will try to Achieved stability with just upsizing the liner but we discussed that we may have to pull both components and do a Complete revision she does not achieve stability. We discussed the risk of surgery including infection, persistent instability, persistent pain. We did get an ESR and CRP and it was normal. She would like to upsize the poly liner. SHe alsop would like a right knee injection for arthritis and a left hip trochanteric bursitis injection Recommend knee cortisone injection as patient would like to proceed with conservative treatment at this time. The risks and benefits of the procedure were reviewed with the patient and patient gave verbal consent to continue with the procedure. Procedure: performed by Dr. Thibodeaux Using sterile technique the Right knee was thoroughly prepped with alcohol, and approximately 1 cc of Kenalog 40 mg/mL and 4 cc of 1% lidocaine was injected without resistance into the medial tibial femoral joint space. The patient tolerated the procedure. Recommend hip bursa cortisone injection as patient would like to proceed with conservative treatment at this time. The risks and benefits of the procedure were reviewed with the patient and patient gave verbal consent to continue with the procedure. Procedure: performed by Dr. Thibodeaux Using sterile technique the left hip bursa was thoroughly prepped with alcohol prep, and approximately 1 cc of Kenalog 40 mg/mL and 4 cc of 1% Lidocaine was injected without resistance. The patient tolerated the procedure well. (2) Arthritis of knee, right: Status: Acute Advanced Care Planning Discussion Advance care planning discussed with:: patient Office Procedures GNS Level of Care Nursing/Assessment Patient Status: Established Patient Nursing Assessment/Reassesment: Medication Reconciliation, Update PMH in EMR and Vital Signs Coordination of Care: Complex Care and Chronic Disease 1-5, Education Complex Pt/Fam, Consent,records obtained, informed consent, Results/Orders obtained and Staff clarify orders Special Needs: Language special needs Established Patient Charge Established Patient Point Assignment: 95 Established Patient Point Charge: EP Level 3 (80-115) Surgical Proc/IM SQ injection Major Surgical Procedure: Yes (HIP AND KNEE INJECTION) Medication Given Medication Given Medication Given: Yes Documented Dose Given: 8 Route: Infiitration Medication Given Medication Given Medication Given: Yes Documented Dose Given: 2 Route: Infiitration Office Meds Xylocaine 10 mg/mL (1 %) injection solution Performing Provider: Cam Thibodeaux MD Performing Location: [facility] Administered by: Cam Thibodeaux MD on 04/12/25 11:58 Dose Route Admin Location Dispensed Lot Number Expiration Date [facility] Weight Shifter 40 mL Infiltration 40 mL [id number] 01/27/28 33519-062-74 [facility] triamcinolone acetonide 40 mg/mL suspension for injection Performing Provider: Cam Thibodeaux MD Performing Location: [facility] Administered by: Cam Thibodeaux MD on 04/12/25 11:58 Dose Route Admin Location Dispensed Lot Number Expiration Date [facility] Weight Shifter 80 mg intra-articular 2 mL [id number] 10/28/26 49399-960-29 [place] Intake Visit Data Collection New Patient or Established: Established Patient (seen at [facility] within 3 years) Reason for Visit:: L HIP/R KNEE INJECTION F/U Seen by Clinical Staff ONLY (RN/MA): No PCP or OBGYN visit in last 3 months: Yes Hx Now: No Do You Feel Safe at Home: Yes Authorities Contacted: N/A Questionairres Past Medical History Past Medical History Have you ever been diagnosed with any of the following: Neurological Problems Seizures: No Cardiology Problems Hypercholesterolemia: Yes (TAKES MED) Congestive Heart Failure: No Hypertension: Yes (TAKES MED) Hypotension: Yes Varicose Veins: Yes (RAQUEL LEFT LEG FOR THIS PROC) Respiratory Problems Chronic Obstructive Pulmonary Disease (COPD): No Pneumonia: Yes Sleep Apnea: No Smoking: No Smoking Cessation Counseling: No Smoking Exposure: No Tobacco Use: No Stomache/Intestinal Problems Cirrhosis: Yes (OF LIVER) Gall Bladder Disease: Yes (LAP) Gastroesophageal Reflux Disease: Yes Genital/Urinary Problems Renal Disease: No Kidney Stones: No Reproductive Problems Breast Cancer: Yes (RIGHT) Previous Pregnancies: Yes (X8) Musculoskeletal Problems Arthritis: Yes Endocrine Problems Diabetes Mellitus Type 1: No Diabetes Mellitus Type 2: Yes Psychologic Problems Depression: Yes Anxiety: Yes Other Problems Hospitalization: No Shingles: No Falls: No Blood Transfusions: No Blood Transfusion Reaction: No Anesthesia Reactions: Yes (nausea/vomiting when awaking from anesthesia) Chemotherapy: No Radiation Therapy: No MRSA: No Chicken Pox: Yes Measles: Yes Mumps: Yes Cancer: Yes Surgical History Total Knee Replacement: Yes Hysterectomy: Yes Thyroidectomy: Yes Subjective Visit Visit for: follow up visit, hip, knee and injections Immunization / Flu Flu Vaccine in the Last 12 Months: No Flu Vaccine Exclusion Criteria: No Exclusion Criteria History of Present Illness Chief complaint: Left hip trochanteric bursitis and right knee pain Patient is a 69-year-old female with left hip trochanteric bursitis as well as right knee arthritis. She also has instability of the left knee and we discussed revision previously. She tried pt and reports the left knee still feelsunstable and is painful. We ruled out infection previously with a normal esr and crp. The left knee feels unstable. Personal History Red flag PMH: none Pain Pain level (0-10): 0 Pain duration: 3 WEEKS Pain location: anterior Pain quality: dull and burning Pain timing: night and increases with activity Associated signs & symptoms: none Ambulatory data Ambulatory device: none Walking distance (minutes): 1 Treatments Number of previous injections: 2 Improvement with previous injections: No Number of Physical Therapy sessions: 6 Improvement with PT: No Improvement with NSAIDS: no Review of Systems Review of Systems: All systems negative unless otherwise noted in HPI.
[2025-04-12 11:13] VITALS: BP 118/76; PULSE 70; RESP 16; TEMP 36.6; O2SAT 95; BMI 32.1
== END 2025-04-12 11:37 | disposition home or self-care (01) ==
LOC: HODSRG 10:42
PROVIDERS: PCP Nurse Practitioner Family; Referring Provider Nurse Practitioner Family; Supervising Provider Orthopaedic Surgery Adult Reconstructive Orthopaedic Surgery; Visit Provider Orthopaedic Surgery Adult Reconstructive Orthopaedic Surgery
DX: M70.62 Trochanteric bursitis, left hip (principal); M17.11 Unilateral primary osteoarthritis, right knee; T84.84XD Pain due to internal orthopedic prosthetic devices, implants and grafts, subsequent encounter; Z96.652 Presence of left artificial knee joint; I10 Essential (primary) hypertension; E78.00 Pure hypercholesterolemia, unspecified; K21.9 Gastro-esophageal reflux disease without esophagitis; E11.9 Type 2 diabetes mellitus without complications; M23.52 Chronic instability of knee, left knee; M25.562 Pain in left knee
CPT/HCPCS: 20610; 99213; J3301; J3490; G0463

== ENCOUNTER 2025-07-15 13:44 | Observation (INO) | payer MEDICARE, MEDICAID, SELFPAY ==
--- NOTE | 2025-07-14 06:00 | EKG_ITS ---
[facility] Test Date: 2025-07-14 Pat Name: EDSON BROWN Department: Room: - Gender: Female Multilith Operator: XU : 1955 Requested By: Phoenix Pedraza Order Number: [id number] Reading MD: Phoenix Pedraza Measurements Intervals [place] Rate: 71 P: 57 WV: 213 QRS: 88 QRSD: 93 T: 46 QT: 398 QTc: 435 Interpretive Statements SINUS RHYTHM WITH FIRST DEGREE AV BLOCK No previous ECG available for comparison /store/S0/[id number]/ecg/[id number].pdf
[2025-07-14 08:01] VITALS: BMI 29.9
[2025-07-14 08:46] LABS: Collection Type, Urine Clean Catch
[2025-07-14 09:46] LABS: Basophils # (Auto) 0.0 Thou/mm3 (0.0-0.2); Basophils % (Auto) 0 % (0-2.5); Eosinophils # (Auto) 0.1 Thou/mm3 (0.0-0.5); Eosinophils % (Auto) 1 % (0-10); Hematocrit 45.5 % (36.0-46.0); Hemoglobin 15.0 g/dL (12.0-16.0); Immature Granulocytes Auto 0.02 Thou/mm3 (0.00-0.00); Lymphocytes # (Auto) 2.1 Thou/mm3 (1.0-4.8); Lymphocytes % (Auto) 28 % (10-50); Mean Corpuscular HGB Conc 33.0 g/dl (31.0-37.0); Mean Corpuscular Hemoglobin 31.2 pg (25.0-35.0); Mean Corpuscular Volume 95 fL (80-100); Monocytes # (Auto) 0.6 Thou/mm3 (0.0-0.8); Monocytes % (Auto) 8 % (0-12); Neutrophils # (Auto) 4.6 Thou/mm3 (1.8-7.7); Neutrophils % (Auto) 62 % (37-80); Nucleated Red Blood Cell # 0.00 Thou/mm3 (0.00-0.00); Nucleated Red Blood Cell % 0 /100 WBC (0); Platelet Count 274 Thou/mm3 (140-440); RDW Standard Deviation 44.7 fL (36.4-46.3); Red Blood Count 4.81 Miln/mm3 (4.00-5.20); White Blood Count 7.4 Thou/mm3 (3.6-11.0)
[2025-07-14 09:50] LABS: Bilirubin,Urine Negative (Negative); Blood,Urine Negative (Negative); Clarity,Urine Clear (Clear/Hazy); Color,Urine Yellow (Lt Yel-Yel); Glucose, Urine Negative (Negative); Ketones,Urine Negative (Negative); Leukocyte Esterase,Urine Negative (Negative); Nitrite,Urine Negative (Negative); PH,Urine 6.0 (5.0-7.0); Protein,Urine Negative (Neg - Trace); RBC,Urine 3 /hpf (0-3); Specific Gravity,Urine 1.018 (1.001-1.035); Squamous Epithelial Cell,Urine 1 /hpf (0-5); Urobilinogen,Urine Negative mg/dL (0.0-1.0); WBC,Urine 1 /hpf (0-5)
[2025-07-14 10:01] LABS: Alanine Aminotransferase 19 U/L (10-49); Albumin, Serum 4.5 gm/dL (3.4-4.8); Albumin/Globulin Ratio 1.6 (1.2-2.2); Alkaline Phosphatase 80 U/L (46-116); Anion Gap 9 (7-16); Aspartate Amino Transferase 24 U/L (0-34); BUN/Creatinine Ratio 16 Ratio (12-20); Bilirubin,Total 0.4 mg/dL (0.3-1.2); Blood Urea Nitrogen 11 mg/dL (9-23); Calcium 9.5 mg/dL (8.3-10.6); Calcium (Corrected) 9.5 mg/dL (8.5-10.1); Carbon Dioxide 26.8 mMol/L (20.0-31.0); Chloride 106 mMol/L (98-107); Creatinine (Component) 0.7 mg/dL (0.6-1.3); Estimated Creatinine Clearance 66.9 mL/min (>60); Globulin 2.8 gm/dL (2.3-3.5); Glucose 115 mg/dL (74-106); Osmolality,Calculated 283 (275-295); Potassium 4.3 mMol/L (3.4-5.1); Sodium 142 mMol/L (136-145); Total Protein 7.3 gm/dL (5.7-8.2); eGFR > 60 See Note
--- NOTE | 2025-07-14 12:19 | ESHP_ITS ---
RE: EDSON BROWN : 1955 DATE OF ADMISSION: 07/14/2025 HISTORY OF PRESENT ILLNESS: Patient is a 69-year-old female with history of urinary stress incontinence. She loses urine on any kind of stress such as sneezing, coughing, laughing. She also had history of microhematuria. PAST MEDICAL HISTORY: She had a right breast cancer. She has no history of hypertension. She does have history of diabetes mellitus. She had a history of pulmonary embolus. She has 5 kids. PAST SURGICAL HISTORY: Previous surgery included a bladder lift surgery 12 years ago. She had a hysterectomy in the past. She had a cholecystectomy in the past. She has surgeries for varicose veins, surgery for hernia operation. She had some blood clot in her neck. ALLERGIES: NONE KNOWN. MEDICATIONS: She takes, 1. Metformin. 2. Eliquis. 3. Jardiance. 4. Omeprazole. 5. Hydrocodone. 6. Statin medications. 7. Something for asthma. 8. Oxybutynin. PHYSICAL EXAMINATION: HEENT: Normal. NECK: Supple. LUNGS: Clear. CARDIOVASCULAR: Heart sounds are normal. ABDOMEN: Soft, obese. 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 Cystoscopy was done which revealed a open urethra normal capacity bladder. Residual urine 2 ounces. Gross urinary stress incontinence with positive Elan's test. PLAN: Patient is scheduled for bladder neck suspension, urethrolysis with Lynx vaginal sling procedure. Planned procedure, risks and complications have been discussed with the patient. Patient has understood them and agreed to proceed. Patient is supposed to stop her Eliquis prior to the surgery. DT: 11:53:51 TT: 12:18:00 Ref: [id number] - TID: [id number]
[2025-07-15] VITALS (14 sets, daily range): BP systolic 99–120; BP diastolic 55–74; PULSE 65–84; RESP 12–20; TEMP 36.1–36.6; O2SAT 95–100; BMI 31.8
[2025-07-15] MEDS: RINGERS LACTATED 1000 ML 1,000 ML 20 ML IV (09:26)
--- NOTE | 2025-07-15 09:30 | SUR.PREOP ---
Patient expressed gratitude for prayer before their procedure.
--- NOTE | 2025-07-15 11:25 | SUR.PHASEI ---
1125: received pt from OR via bed. received report from BENJAMÍN Forde and Dr. Macias. pt sleeping. no s/s of resp. distress or discomfort. no s/s of pain or discomfort. dressing to mid-lower abdomen clean, dry and intact. vaginal packing in place. juarez cath in place and intact with light yellow color urine output.
--- NOTE | 2025-07-15 11:35 | SUR.PHASEI ---
1135: pt able to open eyes when called her name. denies any pain or discomfort.
[2025-07-15] MEDS: fentaNYL CIT INJ 50 mCg/ML AMP 2ML IVP ×2 (11:53→12:27)
--- NOTE | 2025-07-15 11:58 | ESOP_ITS ---
RE: EDSON BROWN : 1955 DATE OF OPERATION: 07/15/2025 PREOPERATIVE DIAGNOSES: Gross urinary stress incontinence, history of diabetes mellitus, previous several vaginal surgery including hysterectomy. POSTOPERATIVE DIAGNOSES: Gross urinary stress incontinence, history of diabetes mellitus, previous several vaginal surgery including hysterectomy. PROCEDURE PERFORMED: Bladder neck suspension, cystoscopy, urethrolysis with Lynx vaginal sling procedure. ANESTHESIA: General by Dr. Siddharth Macias. INDICATION: Patient is a 69-year-old female diabetic with multiple bladder surgeries with hysterectomy in the past. She has been complaining of urinary stress incontinence and loses urine on any kind of stress of sneezing, coughing, laughing, jumping. She had previous surgeries. On examination, she has a very narrow vagina with a grade 2 urethrocele. Patient had cystoscopy which revealed low residual urine, normal capacity bladder, no intravesical stones or tumors, no uninhibited bladder contractions. She had a gross urinary stress incontinence with positive Elan's test. Patient was given treatment options. She has decided to have surgery. She is now scheduled to have bladder neck suspension, cystoscopy, urethrolysis with Lynx vaginal sling procedure. Planned procedure, risks, and complications have been discussed with the patient, patient understood them and agreed to proceed. DESCRIPTION OF PROCEDURE: After the patient was brought to the operating table under adequate general anesthesia and dorsal lithotomy position, parts were prepped and draped in the usual fashion. The 16 [place] Huertas catheter was then inserted into the bladder and was left indwelling. Patient has a very, very narrow vagina, so we could not put weighted vaginal speculum because the vagina is too short. A 0.5 cm vertical incision was then made between mid urethra towards the bladder neck after injecting subcutaneous submucosal injection of the local anesthetics. Dissection was then carried out on both sides underneath the vaginal mucosa for about 2 cm. Deep endopelvic fascia was found out and was entered. Urethrolysis was done on both sides. Retropubic space was identified. At this point, small transverse incisions were made in the suprapubic area about 3 cm from the midline and a Lynx needle was passed from the suprapubic wound into the vaginal wound under finger control behind the pubic bone on both sides. Patient had more than usual bleeding because she is on blood thinner which has been stopped. Eliquis has been stopped for 3 days before. At this point, cystoscopy was done. Huertas catheter was removed. Cystoscopy did not reveal any evidence of injury to bladder. There were no needles seen inside the bladder and bladder appeared to be intact. Cystoscope was then removed and 16-Citizen [place] Huertas catheter was reinserted into the bladder. Lynx sling was attached to both needles and was pulled in place. Excess of the sling and the sleeve of the sling were removed. Excessive tension on the sling was avoided. Anterior vaginal wall incision was then closed with continuous sutures of 2-0 chromic catgut. Suprapubic wounds were closed with interrupted sutures of 3-0 chromic catgut. Kerlix soaked in Betadine solution was used as a vaginal packing which is a small vaginal packing. Sterile dressing was then applied. Patient was then transferred to the recovery room in a satisfactory condition having tolerated the entire procedure well. Sponge count and needle count at the end of the procedure was found to be correct. Estimated blood loss was approximately 500 mL. DT: 11:48:06 TT: 11:58:00 Ref: [id number] - TID: [id number]
[2025-07-15 13:12] LABS: Basophils # (Auto) 0.0 Thou/mm3 (0.0-0.2); Basophils % (Auto) 0 % (0-2.5); Eosinophils # (Auto) 0.0 Thou/mm3 (0.0-0.5); Eosinophils % (Auto) 0 % (0-10); Hematocrit 37.2 % (36.0-46.0); Hemoglobin 12.4 g/dL (12.0-16.0); Immature Granulocytes Auto 0.03 Thou/mm3 (0.00-0.00); Lymphocytes # (Auto) 1.5 Thou/mm3 (1.0-4.8); Lymphocytes % (Auto) 11 % (10-50); Mean Corpuscular HGB Conc 33.3 g/dl (31.0-37.0); Mean Corpuscular Hemoglobin 31.4 pg (25.0-35.0); Mean Corpuscular Volume 94 fL (80-100); Monocytes # (Auto) 0.3 Thou/mm3 (0.0-0.8); Monocytes % (Auto) 2 % (0-12); Neutrophils # (Auto) 11.1 Thou/mm3 (1.8-7.7); Neutrophils % (Auto) 86 % (37-80); Nucleated Red Blood Cell # 0.00 Thou/mm3 (0.00-0.00); Nucleated Red Blood Cell % 0 /100 WBC (0); Platelet Count 211 Thou/mm3 (140-440); RDW Standard Deviation 43.8 fL (36.4-46.3); Red Blood Count 3.95 Miln/mm3 (4.00-5.20); White Blood Count 13.0 Thou/mm3 (3.6-11.0)
--- NOTE | 2025-07-15 13:15 | SUR.PHASEII ---
1315: resume care. pt alert and oriented. no s/s of pain or discomfort. no s/s of resp. distress or discomfort. dressing to lower mid-abdomen by pubic area clean, dry and intact. vaginal in place. juarez cath in place and intact.
[2025-07-15] MEDS: RINGERS LACTATED 1000 ML 1,000 ML 100 ML IV (13:24)
[2025-07-15 13:34] LABS: INR 1.1 (0.9-1.3); Partial Thromboplastin Time 29.7 Seconds (22.0-36.0); Prothrombin Time 11.5 Seconds (9.0-12.2)
--- NOTE | 2025-07-15 13:35 | SUR.PHASEII ---
1335: tarnsferred to room 353 via bed. pt alert and oriented. no s/s of pain or discomfort. no s/s of resp. distress or discomfort. dressing to lower mid-abdomen by pubic area clean, dry and intact. vaginal in place. juarez cath in place and intact with yellow color urine.
[2025-07-15] MEDS: KETOROLAC INJ 30 MG/ML VIAL IM (21:26)
[2025-07-16] VITALS: BP 90/58; PULSE 69; RESP 16; TEMP 36.2; O2SAT 95
[2025-07-16] MEDS: RINGERS LACTATED 1000 ML 1,000 ML 100 ML IV (02:11)
[2025-07-16 04:00] VITALS: BP 110/61; PULSE 64; RESP 16; TEMP 36.6; O2SAT 96
[2025-07-16 05:55] LABS: Basophils # (Auto) 0.0 Thou/mm3 (0.0-0.2); Basophils % (Auto) 0 % (0-2.5); Eosinophils # (Auto) 0.0 Thou/mm3 (0.0-0.5); Eosinophils % (Auto) 0 % (0-10); Hematocrit 32.5 % (36.0-46.0); Hemoglobin 11.3 g/dL (12.0-16.0); Immature Granulocytes Auto 0.05 Thou/mm3 (0.00-0.00); Lymphocytes # (Auto) 1.8 Thou/mm3 (1.0-4.8); Lymphocytes % (Auto) 14 % (10-50); Mean Corpuscular HGB Conc 34.8 g/dl (31.0-37.0); Mean Corpuscular Hemoglobin 31.7 pg (25.0-35.0); Mean Corpuscular Volume 91 fL (80-100); Monocytes # (Auto) 1.0 Thou/mm3 (0.0-0.8); Monocytes % (Auto) 8 % (0-12); Neutrophils # (Auto) 10.0 Thou/mm3 (1.8-7.7); Neutrophils % (Auto) 78 % (37-80); Nucleated Red Blood Cell # 0.00 Thou/mm3 (0.00-0.00); Nucleated Red Blood Cell % 0 /100 WBC (0); Platelet Count 209 Thou/mm3 (140-440); RDW Standard Deviation 42.5 fL (36.4-46.3); Red Blood Count 3.56 Miln/mm3 (4.00-5.20); White Blood Count 12.8 Thou/mm3 (3.6-11.0)
[2025-07-16] MEDS: HYDROcodone/APAP 5/325 TABLET 1 TAB PO (05:59)
[2025-07-16 06:27] LABS: Albumin, Serum 3.4 gm/dL (3.4-4.8); Anion Gap 9 (7-16); BUN/Creatinine Ratio 17 Ratio (12-20); Blood Urea Nitrogen 10 mg/dL (9-23); Calcium 8.6 mg/dL (8.3-10.6); Calcium (Corrected) 9.1 mg/dL (8.5-10.1); Carbon Dioxide 22.1 mMol/L (20.0-31.0); Chloride 110 mMol/L (98-107); Creatinine (Component) 0.6 mg/dL (0.6-1.3); Estimated Creatinine Clearance 80.6 mL/min (>60); Glucose 124 mg/dL (74-106); Osmolality,Calculated 281 (275-295); Phosphorous 2.8 mg/dL (2.4-5.1); Potassium 3.7 mMol/L (3.4-5.1); Sodium 141 mMol/L (136-145); eGFR > 60 See Note
[2025-07-16 07:56] VITALS: BP 119/62; PULSE 62; RESP 18; TEMP 36.4; O2SAT 99
[2025-07-16] MEDS: EZETIMIBE 10 MG TABLET PO (08:19)
[2025-07-16] MEDS: PANTOPRAZOLE 20 MG TABLET 40 MG PO (08:19)
[2025-07-16] MEDS: LEVOFLOXACIN/D5W 500 MG IVPB 500 MG/100 ML BAG 100 MG IV (10:23)
[2025-07-16 12:00] VITALS: BP 96/57; PULSE 72; RESP 18; TEMP 36.6; O2SAT 99
== END 2025-07-16 14:26 | disposition home or self-care (01) ==
LOC: S3NX 14:02
PROVIDERS: Anesthesiology; Admitting Provider Surgery; PCP Nurse Practitioner Family; Referring Provider Surgery; Visit Provider Surgery
PROC: 0TJB8ZZ Inspection of Bladder, Via Natural or Artificial Opening Endoscopic (ICD-10-PCS; CPT 57288; principal; 2025-07-15 10:30)
DX: N39.3 Stress incontinence (female) (male) (principal); Z90.49 Acquired absence of other specified parts of digestive tract; Z01.810 Encounter for preprocedural cardiovascular examination
CPT/HCPCS: 57288; 36415; 80053; 80069; 81001; 85025; 85610; 85730; 87086; 93005; 96361; 96372; 96374; 96376; A4217; A4649; C1771; G0378; J0131; J1100; J1885; J1956; J2270; J2371; J2704; J2710; J2765; J3010; J3490; J7120; A9270; J1596

== ENCOUNTER → 2025-09-08 | Outpatient (CLI) | payer OTHER, SELFPAY | END | disposition home or self-care (01) | PROVIDERS: PCP Nurse Practitioner Family; Referring Provider Nurse Practitioner Family; Visit Provider Student in an Organized Health Care Education/Training Program | DX: S31.105A Unspecified open wound of abdominal wall, periumbilic region without penetration into peritoneal cavity, initial encounter (principal); X58.XXXA Exposure to other specified factors, initial encounter; K21.9 Gastro-esophageal reflux disease without esophagitis; J45.909 Unspecified asthma, uncomplicated; N20.0 Calculus of kidney; Z98.890 Other specified postprocedural states; M19.91 Primary osteoarthritis, unspecified site; K74.60 Unspecified cirrhosis of liver; E11.69 Type 2 diabetes mellitus with other specified complication; I95.9 Hypotension, unspecified; Z79.84 Long term (current) use of oral hypoglycemic drugs; Z85.3 Personal history of malignant neoplasm of breast | CPT/HCPCS: 99213; G0463 ==

== ENCOUNTER → 2025-09-08 | Outpatient (CLI) | payer MEDICARE, MEDICAID, SELFPAY ==
[2025-09-08 12:23] LABS: Basophils # (Auto) 0.0 Thou/mm3 (0.0-0.2); Basophils % (Auto) 1 % (0-2.5); Eosinophils # (Auto) 0.1 Thou/mm3 (0.0-0.5); Eosinophils % (Auto) 1 % (0-10); Hematocrit 40.6 % (36.0-46.0); Hemoglobin 13.4 g/dL (12.0-16.0); Immature Granulocytes Auto 0.02 Thou/mm3 (0.00-0.00); Lymphocytes # (Auto) 2.1 Thou/mm3 (1.0-4.8); Lymphocytes % (Auto) 32 % (10-50); Mean Corpuscular HGB Conc 33.0 g/dl (31.0-37.0); Mean Corpuscular Hemoglobin 30.7 pg (25.0-35.0); Mean Corpuscular Volume 93 fL (80-100); Monocytes # (Auto) 0.5 Thou/mm3 (0.0-0.8); Monocytes % (Auto) 8 % (0-12); Neutrophils # (Auto) 3.9 Thou/mm3 (1.8-7.7); Neutrophils % (Auto) 59 % (37-80); Nucleated Red Blood Cell # 0.00 Thou/mm3 (0.00-0.00); Nucleated Red Blood Cell % 0 /100 WBC (0); Platelet Count 273 Thou/mm3 (140-440); RDW Standard Deviation 43.5 fL (36.4-46.3); Red Blood Count 4.37 Miln/mm3 (4.00-5.20); White Blood Count 6.6 Thou/mm3 (3.6-11.0)
[2025-09-08 12:35] LABS: Glucose Estimated Average 111 mg/dL (80-131); Hemoglobin A1C 5.5 % Hgb (4.8-6.0)
[2025-09-08 12:57] LABS: Alanine Aminotransferase 13 U/L (10-49); Albumin, Serum 4.5 gm/dL (3.4-4.8); Albumin/Globulin Ratio 1.6 (1.2-2.2); Alkaline Phosphatase 82 U/L (46-116); Anion Gap 9 (7-16); Aspartate Amino Transferase 20 U/L (0-34); BUN/Creatinine Ratio 15 Ratio (12-20); Bilirubin,Total 0.4 mg/dL (0.3-1.2); Blood Urea Nitrogen 9 mg/dL (9-23); Calcium 9.8 mg/dL (8.3-10.6); Calcium (Corrected) 9.8 mg/dL (8.5-10.1); Carbon Dioxide 26.7 mMol/L (20.0-31.0); Chloride 106 mMol/L (98-107); Creatinine (Component) 0.6 mg/dL (0.6-1.3); Globulin 2.9 gm/dL (2.3-3.5); Glucose 86 mg/dL (74-106); Osmolality,Calculated 280 (275-295); Potassium 3.6 mMol/L (3.4-5.1); Sodium 142 mMol/L (136-145); Total Protein 7.4 gm/dL (5.7-8.2); eGFR > 60 See Note
[2025-09-08 13:04] LABS: Sed Rate (ESR) 14 mm/hr (0-30)
== END | disposition home or self-care (01) ==
LOC: COPL 11:34
PROVIDERS: PCP Nurse Practitioner Family; Referring Provider Student in an Organized Health Care Education/Training Program; Visit Provider Student in an Organized Health Care Education/Training Program
DX: E11.622 Type 2 diabetes mellitus with other skin ulcer (principal)
CPT/HCPCS: 36415; 80053; 83036; 85025; 85652

== ENCOUNTER → 2025-09-15 | Outpatient (CLI) | payer OTHER, SELFPAY | END | disposition home or self-care (01) | PROVIDERS: PCP Nurse Practitioner Family; Referring Provider Nurse Practitioner Family; Visit Provider Student in an Organized Health Care Education/Training Program | DX: T81.89XA Other complications of procedures, not elsewhere classified, initial encounter (principal); S31.105A Unspecified open wound of abdominal wall, periumbilic region without penetration into peritoneal cavity, initial encounter; X58.XXXA Exposure to other specified factors, initial encounter; E11.69 Type 2 diabetes mellitus with other specified complication; J45.909 Unspecified asthma, uncomplicated; K21.9 Gastro-esophageal reflux disease without esophagitis; Z85.3 Personal history of malignant neoplasm of breast; Z87.442 Personal history of urinary calculi | CPT/HCPCS: 99212; A9270; G0463 ==

== ENCOUNTER → 2025-09-20 | Outpatient (CLI) | payer MEDICARE, SELFPAY | END | disposition home or self-care (01) | PROVIDERS: PCP Nurse Practitioner Family; Referring Provider Nurse Practitioner Family; Visit Provider Surgery | DX: S31.105A Unspecified open wound of abdominal wall, periumbilic region without penetration into peritoneal cavity, initial encounter (principal); X58.XXXA Exposure to other specified factors, initial encounter; K21.9 Gastro-esophageal reflux disease without esophagitis; J45.909 Unspecified asthma, uncomplicated; N20.0 Calculus of kidney; Z98.890 Other specified postprocedural states; M19.91 Primary osteoarthritis, unspecified site; K74.60 Unspecified cirrhosis of liver; E11.69 Type 2 diabetes mellitus with other specified complication; I95.9 Hypotension, unspecified; Z79.84 Long term (current) use of oral hypoglycemic drugs; Z85.3 Personal history of malignant neoplasm of breast | CPT/HCPCS: 99213; G0463 ==

== ENCOUNTER → 2025-09-27 | Outpatient (CLI) | payer MEDICARE, MEDICAID, SELFPAY | END | disposition home or self-care (01) | LOC: SLDO 14:09 | PROVIDERS: Referring Provider Student in an Organized Health Care Education/Training Program; Visit Provider Student in an Organized Health Care Education/Training Program | DX: L98.432 Non-pressure chronic ulcer of abdomen with fat layer exposed (principal); T81.31XA Disruption of external operation (surgical) wound, not elsewhere classified, initial encounter | CPT/HCPCS: 87070; 87075; 87106; 87186; 87205 ==

== ENCOUNTER → 2025-09-27 | Outpatient (CLI) | payer MEDICARE, SELFPAY | END | disposition home or self-care (01) | LOC: SWHD 09:37 | PROVIDERS: PCP Obstetrics & Gynecology; Referring Provider Obstetrics & Gynecology; Visit Provider Student in an Organized Health Care Education/Training Program | DX: S31.105A Unspecified open wound of abdominal wall, periumbilic region without penetration into peritoneal cavity, initial encounter (principal); X58.XXXA Exposure to other specified factors, initial encounter; K21.9 Gastro-esophageal reflux disease without esophagitis; J45.909 Unspecified asthma, uncomplicated; N20.0 Calculus of kidney; Z98.890 Other specified postprocedural states; M19.91 Primary osteoarthritis, unspecified site; K74.60 Unspecified cirrhosis of liver; E11.69 Type 2 diabetes mellitus with other specified complication; I95.9 Hypotension, unspecified; Z79.84 Long term (current) use of oral hypoglycemic drugs; Z85.3 Personal history of malignant neoplasm of breast | CPT/HCPCS: 99213; A9270; G0463 ==